=== PATIENT | female | born 1950 | race Caucasian/White ===

== ENCOUNTER 2021-08-12 11:25 | Inpatient (IN) | payer OTHER ==
[~2021-08-12] VITALS: Ht 177 cm; Wt 79.0 kg
[2021-08-12 12:57] LABS: BASOPHIL 0.3 % (0-2); EOSINOPHIL 1.1 % (0-7); HCT 39.6 % (37.0-47.0); HGB 13.1 g/dl (12.5-16.0); LYMPHOCYTE 15.8 % (15-48); MCH 33.3 pg (25.0-31.0); MCHC 33.1 g/dL (32.0-36.0); MCV 100.8 fL (78.0-100.0); MONOCYTE 5.1 % (0-12); MPV 9.7 fL (6.0-9.5); NEUTROPHIL 77.2 % (41-80); NRBC 0; PLT 192 K/uL (150-400); RBC 3.93 M/uL (4.20-5.40); RDW 12.5 % (11.5-14.0); WBC 10.8 K/uL (4.0-10.5)
[2021-08-12 13:24] LABS: BUN/CREAT RATIO (CALC) 27.1 RATIO; CREATININE 0.96 mg/dL (0.51-0.95); POTASSIUM 3.8 mmol/L (3.5-5.1)
[2021-08-12] MEDS ORDERED: LORAZEPAM1 MG PO (21:09)
[2021-08-12] MEDS ORDERED: LISINOPRIL10 MG PO (21:10)
[2021-08-12] MEDS ORDERED: BACLOFEN10 MG PO (21:10)
[2021-08-12] MEDS ORDERED: CITALOPRAM HBR20 MG PO (21:11)
[2021-08-12] MEDS ORDERED: OMEPRAZOLE40 MG PO (21:11)
[2021-08-12] MEDS ORDERED: OXYBUTYNIN CHLO10 MG PO (21:12)
[2021-08-12] MEDS ORDERED: DORZOLAMIDE-TIM10 ML OU (21:12)
[2021-08-12] MEDS ORDERED: MONTELUKAST SOD10 MG PO (21:13)
[2021-08-12] MEDS ORDERED: HYDROCHLOROTH12.5 MG PO (21:13)
[2021-08-12] MEDS ORDERED: CLOBETASOL PROP15 GM TOP (21:14)
[2021-08-13 04:42] LABS: BASOPHIL 0.4 % (0-2); EOSINOPHIL 2.2 % (0-7); HGB 12.7 g/dl (12.5-16.0); LYMPHOCYTE 24.8 % (15-48); MCH 33.2 pg (25.0-31.0); MCHC 33.4 g/dL (32.0-36.0); MCV 99.2 fL (78.0-100.0); MONOCYTE 5.9 % (0-12); MPV 10.1 fL (6.0-9.5); NEUTROPHIL 66.4 % (41-80); NRBC 0; PLT 184 K/uL (150-400); RBC 3.83 M/uL (4.20-5.40); RDW 12.5 % (11.5-14.0); WBC 9.2 K/uL (4.0-10.5)
[2021-08-13 05:24] LABS: BUN/CREAT RATIO (CALC) 20.5 RATIO; CREATININE 0.83 mg/dL (0.51-0.95); POTASSIUM 3.8 mmol/L (3.5-5.1)
[2021-08-13] MEDS ORDERED: PERCOCET 5-3251 EACH PO ×2 (09:23→09:25)
--- NOTE | 2021-08-13 11:09 | NUR ---
08/13/21 Please consider full admit or discharge. Thank You.
--- NOTE | 2021-08-14 03:31 | NUR ---
PATIENT IS A RETIRED ORTHO NURSE.
[2021-08-14 04:05] LABS: BASOPHIL 0.4 % (0-2); EOSINOPHIL 1.5 % (0-7); HCT 32.7 % (37.0-47.0); HGB 10.9 g/dl (12.5-16.0); LYMPHOCYTE 13.8 % (15-48); MCH 33.3 pg (25.0-31.0); MCHC 33.3 g/dL (32.0-36.0); MONOCYTE 4.8 % (0-12); NEUTROPHIL 79.1 % (41-80); NRBC 0; PLT 150 K/uL (150-400); RBC 3.27 M/uL (4.20-5.40); RDW 12.4 % (11.5-14.0); WBC 10.8 K/uL (4.0-10.5)
[2021-08-14 04:25] LABS: BUN/CREAT RATIO (CALC) 19.1 RATIO; CREATININE 1.1 mg/dL (0.51-0.95); POTASSIUM 4.2 mmol/L (3.5-5.1)
[2021-08-15 06:24] LABS: HGB 9.9 g/dL (12.5-16.0)
[2021-08-15 06:43] LABS: BUN/CREAT RATIO (CALC) 14.7 RATIO; CREATININE 1.02 mg/dL (0.51-0.95); POTASSIUM 4.7 mmol/L (3.5-5.1)
[2021-08-15] MEDS ORDERED: XARELTO10 MG PO (11:25)
[2021-08-15] MEDS ORDERED: FEOSOL325 MG PO (11:25)
--- NOTE | 2021-08-15 11:54 | NUR ---
PT HAD A LEFT HIP FX W/REPLACEMENT ON 08/13/21. PT. HAS A 10/04. SHE REQUESTS A RW. [facility] TO DELIVER A RW UPON DISCHARGE. PT. REQUESTS [facility]. FIRST APPT. IS 08/27/21 @ 3:15 P.M. PT. SIGNED CHOICE FORM AND COPY GIVEN. PT. WILL D/C HOME WITH SPOUSE.
== END 2021-08-15 13:50 | disposition home or self-care (01) | DRG 522 ==
LOC: FER 11:25 → FMS 15:35
PROVIDERS: Internal Medicine; Orthopaedic Surgery; ADMIT Family Medicine
PROC: 0SRB02Z Replacement of Left Hip Joint with Metal on Polyethylene Synthetic Substitute, Open Approach (ICD-10-PCS; principal; 2021-08-13 10:00)
DX: S72.012A Unspecified intracapsular fracture of left femur, initial encounter for closed fracture (principal); I12.9 Hypertensive chronic kidney disease with stage 1 through stage 4 chronic kidney disease, or unspecified chronic kidney disease; N18.2 Chronic kidney disease, stage 2 (mild); Z20.822 Contact with and (suspected) exposure to COVID-19; W01.0XXA Fall on same level from slipping, tripping and stumbling without subsequent striking against object, initial encounter; D75.89 Other specified diseases of blood and blood-forming organs; I25.10 Atherosclerotic heart disease of native coronary artery without angina pectoris; F32.A Depression, unspecified; F17.200 Nicotine dependence, unspecified, uncomplicated; G43.909 Migraine, unspecified, not intractable, without status migrainosus; I95.2 Hypotension due to drugs; T40.2X5A Adverse effect of other opioids, initial encounter; E86.0 Dehydration; D53.9 Nutritional anemia, unspecified; D50.0 Iron deficiency anemia secondary to blood loss (chronic); M17.0 Bilateral primary osteoarthritis of knee; Z90.49 Acquired absence of other specified parts of digestive tract; Z87.442 Personal history of urinary calculi; Z88.5 Allergy status to narcotic agent; Z95.5 Presence of coronary angioplasty implant and graft; Z79.899 Other long term (current) drug therapy
CPT/HCPCS: 36415; 71045; 73501; 73502; 76000; 80048; 82607; 85018; 85025; 97162; 97166; 97530-GP; 97535; C1776; J0171; J0697; J1170; J1885; J2250; J2405; J2704; J2710; J2795; J3010; J7030; U0002